=== PATIENT | male | born 1960 | race Caucasian/White ===

== ENCOUNTER 2017-08-03 14:03 | Emergency (ER) | payer MEDICAID ==
[~2017-08-03] VITALS: Ht 175.3 cm; Wt 81.6 kg
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
[2017-08-03] MEDS ORDERED: IBUPROFEN 400 MG TABLET PO ONE (14:30)
[2017-08-03] MEDS ORDERED: IBUPROFEN 400 MG TABLET ONE (14:38)
--- NOTE | 2017-08-03 14:40 | NUR ---
patient medicated per md orders.
--- NOTE | 2017-08-03 14:59 | NUR ---
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
[2017-08-03 15:38] VITALS: BP 122/76
--- NOTE | 2017-08-03 15:38 | NUR ---
Patient discharged to home in stable condition. Written and verbal after care instructions given. Patient verbalizes understanding of instruction.
== END 2017-08-03 15:39 | disposition home or self-care (01) ==
LOC: ER 14:09
DX: S50.01XA Contusion of right elbow, initial encounter (principal); S00.03XA Contusion of scalp, initial encounter; S80.01XA Contusion of right knee, initial encounter; Z98.890 Other specified postprocedural states; V89.2XXA Person injured in unspecified motor-vehicle accident, traffic, initial encounter; Y93.89 Activity, other specified; Y92.89 Other specified places as the place of occurrence of the external cause; Y99.8 Other external cause status
CPT/HCPCS: 73080; 73564; 99284; A4606; Z7610